=== PATIENT | female | born 1970 | race Caucasian/White ===

== ENCOUNTER 2021-03-29 12:27 | Outpatient (CLI) | payer OTHER, SELFPAY ==
--- NOTE | 2021-03-29 12:56 | ECHO_ITS ---
Patient Info Name: Fabby Davis Age: 50 years : 1970 Gender: Female Ht: 69 in Wt: 222 lbs BSA: 2.25 m2 HR: 74 bpm BP: 115 / 75 mmHg Heart Rhythm: Sinus Rhythm Exam Date: 03/29/2021 1:10 PM Exam Location: [facility] Patient Status: Outpatient Admit Date: 03/29/2021 Staff Ordering Physician: Joanne Holden MD [place] Specialist: Elizabeth Leone RDCS Attending Provider: Joanne Holden MD Exam Type: CA echo doppler color flow Study Info Indications R01.1 - Cardiac murmur, unspecified Complete two-dimensional, color flow and Doppler transthoracic echocardiogram is performed. Summary 1. Complete two-dimensional, color flow and Doppler transthoracic echocardiogram is performed. 2. Left ventricular chamber dimension is normal. 3. Left ventricular systolic function is normal, estimated at 60-65%. 4. The left ventricular diastolic function is grade I diastolic dysfunction. 5. E/e' 18 is elevated. 6. There is moderate aortic valve sclerosis. 7. There is mild to moderate aortic valve regurgitation. 8. There is mild tricuspid valve regurgitation. 9. No pulmonary hypertension, estimated pulmonary arterial systolic pressure is 27 mmHg. Left Ventricle E/e' 18 is elevated. Left ventricular chamber dimension is normal. Left ventricular systolic function is normal, estimated at 60-65%. The left ventricular diastolic function is grade I diastolic dysfunction. Right Ventricle Right ventricular systolic function is normal and with normal TAPSE 2.4 cm. Right ventricular chamber dimension is normal. Left Atria Left atrial chamber dimension is normal. Right Atria Right atrial chamber dimension is normal. Aortic Valve The aortic valve is trileaflet. There is moderate aortic valve sclerosis. There is no aortic valve stenosis. There is mild to moderate aortic valve regurgitation. Pulmonic Valve There is no pulmonic regurgitation. Mitral Valve There is no mitral valve stenosis. There is no mitral valve regurgitation. Tricuspid Valve There is mild tricuspid valve regurgitation. No pulmonary hypertension, estimated pulmonary arterial systolic pressure is 27 mmHg. Pericardium/Pleural There is no pericardial effusion. Inferior Vena Cava Normal inferior vena cava with >50% collapse upon inspiration consistent with normal right atrial pressure, 5 mmHg. Aorta The aortic root size at the sinus of Valsalva is normal. Left Ventricular Outflow Tract Name Value Normal LVOT 2D LVOT Diameter 1.9 cm LVOT Doppler LVOT Peak Gradient 6 mmHg LVOT Mean Gradient 3 mmHg LVOT VTI 26 cm LVOT VTI/AV VTI Ratio 0.6 LVOT Stroke Volume 75 ml LVOT CO 4.7 l/min LVOT CI 2.1 l/min/m2 Pulmonic Valve Name Value Normal
== END 2021-03-29 12:28 | disposition home or self-care (01) ==
PROVIDERS: PCP Family Medicine; Visit Provider Family Medicine
DX: R01.1 Cardiac murmur, unspecified (principal); I08.3 Combined rheumatic disorders of mitral, aortic and tricuspid valves
CPT/HCPCS: 93306

== ENCOUNTER 2022-03-06 08:44 | Outpatient (CLI) | payer OTHER, SELFPAY ==
--- NOTE | ~2022-03-06 | DEXA_ITS ---
Bone Density Report Name: TIFFANIE CUEVAS Age: 51 Sex: Female Ethnicity: White Date of : 1970 Indication: postmenopausal; screening for osteoporosis; prior fracture; cancer; hysterectomy; Referring Provider: KEATON LOCKETT Study: Bone densitometry was performed. Exam Date: March 06, 2022 Accession number: [id number] Bone Density: Region BMD T-score Z-score Classification AP Spine(L1-L4) 0.820 -2.1 -1.3 Osteopenia Femoral Neck (Left) 0.759 -0.8 0.0 Normal Total Hip (Left) 0.824 -1.0 -0.5 Normal Femoral Neck (Right) 0.668 -1.6 -0.9 Osteopenia Total Hip (Right) 0.758 -1.5 -1.0 Osteopenia Total Hip Mean 0.791 -1.3 -0.8 Osteopenia World Health Organization criteria for BMD impression classify patients as: Normal (T-score at or above -1.0), Osteopenia (T-score between -1.0 and -2.5), or Osteoporosis (T-score at or below -2.5). 10-year Fracture Risk(1): Major Osteoporotic Fracture 8.9% Hip Fracture 0.9% Reported Risk Factors: [place] (), Neck BMD=0.668, BMI=30.4, previous fracture (1) FRAX(R) Version 3.08. Fracture probability calculated for an untreated patient. Fracture probability may be lower if the patient has received treatment. Clinical Information Provided by Patient: Has had a low trauma fracture Has the following medical conditions: Cancer, Hysterectomy Patient maximum height was 71 Menopause Age: 33 No regular weight bearing exercise Drinks caffeinated beverages Onset of menses at age 15 Number of children 0 Impression: The patient has low bone mass, based on the Total Spine T-score. The patient has an estimated ten-year risk of hip fracture of 0.9% and an estimated ten-year risk of major fracture of 8.9%, based on the WHO FRAX algorithm. The patient has risk factors, including: previous fracture. Discussion: BONE DENSITY IS LOW AT ONE OR MORE SKELETAL SITES. This patient's lowest T-score is low at one or more skeletal sites. It meets the World Health Organization's (WHO) criteria for ?low bone mass? (T-score between -1.0 and -2.5). The patient's 10-year risk of fracture as calculated by FRAX is less than the threshold where pharmacological therapy is recommended by the National Osteoporosis Foundation (NOF). However, all treatment decisions require clinical judgment and consideration of individual patient factors, including patient preferences, comorbidities, previous drug use, risk factors not captured in the FRAX model (e.g., frailty, falls, vitamin D deficiency, increased bone turnover, interval significant decline in bone density) and possible under or overestimation of fracture risk by FRAX. The patient should follow a healthful lifestyle (good nutrition with adequate calcium and vitamin D, and appropriate weight-bearing exercise). Follow-Up: Consid
== END 2022-03-06 08:45 | disposition home or self-care (01) ==
LOC: ANHIMG 08:47
PROVIDERS: PCP Family Medicine; Visit Provider Obstetrics & Gynecology
DX: Z78.0 Asymptomatic menopausal state (principal); M85.88 Other specified disorders of bone density and structure, other site; M85.851 Other specified disorders of bone density and structure, right thigh
CPT/HCPCS: 77080

== ENCOUNTER 2022-05-16 12:54 | Day surgery (SDC) | payer OTHER, SELFPAY ==
[2022-03-08 11:18] VITALS: BMI 30.8
[2022-05-06 10:33] VITALS: BMI 30.6
--- NOTE | 2022-05-15 06:29 | PM.HPGS ---
History of Present Illness History of Present Illness Consent: Risks, benefits, and alternatives have been discussed and questions answered. Patient agrees to proceed with procedure. Chief complaint: Neoplasm Screening Narrative: Fabby Davis is a 51 year old female referred for colon cancer screening. Had performed her last colonoscopy 11 years ago at which time we found internal hemorrhoids. Review of Systems Review of Systems: All systems reviewed & are unremarkable except as noted in HPI and below PMFSH Past Medical History Medical History Allergic rhinitis Anxiety Breast cancer Depression Dyslipidemia Environmental allergies GERD without esophagitis Heart murmur History of right breast cancer Hx of Hodgkins lymphoma 1988 Hypothyroidism (acquired) Insomnia Intractable migraine without aura and without status migrainosus Osteopenia Pneumonia 12/2001 Reactive depression 01/2001 Restrictive lung disease Surgical History Surgical History History of back surgery (~2009) History of breast surgery (2003) History of lung surgery (~1989) History of total hysterectomy (~1999) Hx of lumbosacral spine surgery Social History Social History Smoking status: Never smoker Second hand tobacco smoke exposure: No Alcohol intake: current Substance use: never Substance use type: does not use Living arrangements: with family Spiritual care concerns: No Meds Home Medications and Allergies Home Medications Medication Instructions Recorded Confirmed Type bupropion HCl 150 mg 24 hr tablet, 150 mg PO QAM 02/07/21 05/06/22 History extended release cetirizine 10 mg tablet (Zyrtec) 10 mg PO DAILY 02/07/21 05/06/22 History esomeprazole magnesium 20 mg 40 mg PO DAILY 02/07/21 05/06/22 History capsule,delayed release (Nexium) sertraline 100 mg tablet 100 mg PO DAILY 02/07/21 05/06/22 History clobetasol 0.05 % topical cream 1 applic topical DAILY PRN vaginal 01/21/22 05/06/22 Rx irritation #30 grams mupirocin 2 % topical ointment 1 applic topical DAILY 02/13/22 05/06/22 History trazodone 100 mg tablet 200 mg PO QHS 02/13/22 05/06/22 History cyanocobalamin (vitamin B-12) 1,000 mcg sublingual DAILY #90 tabs 02/14/22 05/06/22 Rx 1,000 mcg sublingual tablet triamcinolone acetonide 0.5 % 1 applic topical BID PRN mild 02/18/22 05/06/22 Rx topical cream irritation #30 grams atorvastatin 40 mg tablet 40 mg PO QHS #90 tabs 04/02/22 05/06/22 Rx topiramate 50 mg tablet 50 mg PO DAILY #90 tabs 04/02/22 05/06/22 Rx zolpidem 12.5 mg tablet,extended 12.5 mg PO QHS PRN insomnia #90 04/05/22 05/06/22 Rx release,multiphase (Ambien CR) tabs eletriptan 40 mg tablet (Relpax) See Rx Instructions PO .COMPLEX 05/06/22 05/06/22 History levothyroxine 175 mcg tablet 175 mcg PO QAM #90 tabs 05/11/22 Rx Allergies Allergy/AdvReac Type Severity Reaction Status Date / Time levofloxacin Allergy Intermediate Rash Verified 05/16/22 13:09 Quinolones Allergy Mild Rash Verified 05/16/22 13:09 morphine AdvReac Intermediate Nausea Verified 05/16/22 13:09 Exam Const: General: alert Orientation/consciousness: patient oriented x3 Resp: Auscultation: clear to auscultation bilaterally Cardio: Rhythm: regular rhythm GI: GI Palp: Yes Soft to palpation and No Tenderness to palpation present (GI) Neuro: General: patient oriented x3 Assessment and Plan Assessment and plan (1) Colon cancer screening: Code(s): Z12.11 - Encounter for screening for malignant neoplasm of colon Status: Acute Assessment and Plan: Colonoscopy with possible biopsy or polypectomy or cautery or injection of substances.
[2022-05-16 13:15] VITALS: BP 121/83; PULSE 90; RESP 16; TEMP 36.6; O2SAT 99; BMI 29.7
--- NOTE | 2022-05-16 13:18 | WPDANESEPPF ---
Anes - Initial Pre Proc Eval Procedure: Operation Date: 05/16/22 14:30 Proposed Procedures p Screening Colonoscopy - William Gomez MD Date/Time: 05/16/22 13:18 Surgeon: William Gomez MD Pre Op Diagnosis: Neoplasm Screening Patient Data Age: 51 Gender: F Height: 1.8 m Weight: 96.9 kg Last Vital Signs Temp 36.6 C 05/16/22 13:15 Pulse 90 05/16/22 13:15 Resp 16 05/16/22 13:15 BP 121/83 05/16/22 13:15 Pulse Ox 99 05/16/22 13:15 O2 Del Method Room Air 05/16/22 13:15 Allergies Allergy/AdvReac Type Severity Reaction Status Date / Time levofloxacin Allergy Intermediate Rash Verified 05/16/22 13:09 Quinolones Allergy Mild Rash Verified 05/16/22 13:09 morphine AdvReac Intermediate Nausea Verified 05/16/22 13:09 Home Medications Medication Instructions Recorded Confirmed Type bupropion HCl 150 mg 24 hr tablet, 150 mg PO QAM 02/07/21 05/16/22 History extended release cetirizine 10 mg tablet (Zyrtec) 10 mg PO DAILY 02/07/21 05/06/22 History esomeprazole magnesium 20 mg 40 mg PO DAILY 02/07/21 05/16/22 History capsule,delayed release (Nexium) sertraline 100 mg tablet 100 mg PO DAILY 02/07/21 05/16/22 History clobetasol 0.05 % topical cream 1 applic topical DAILY PRN vaginal 01/21/22 05/06/22 Rx irritation #30 grams mupirocin 2 % topical ointment 1 applic topical DAILY 02/13/22 05/06/22 History trazodone 100 mg tablet 200 mg PO QHS 02/13/22 05/06/22 History cyanocobalamin (vitamin B-12) 1,000 mcg sublingual DAILY #90 tabs 02/14/22 05/16/22 Rx 1,000 mcg sublingual tablet triamcinolone acetonide 0.5 % 1 applic topical BID PRN mild 02/18/22 05/06/22 Rx topical cream irritation #30 grams atorvastatin 40 mg tablet 40 mg PO QHS #90 tabs 08/23/22 09/26/22 Rx topiramate 50 mg tablet 50 mg PO DAILY #90 tabs 04/02/22 05/16/22 Rx zolpidem 12.5 mg tablet,extended 12.5 mg PO QHS PRN insomnia #90 04/05/22 05/06/22 Rx release,multiphase (Ambien CR) tabs eletriptan 40 mg tablet (Relpax) See Rx Instructions PO .COMPLEX 05/06/22 05/06/22 History levothyroxine 175 mcg tablet 175 mcg PO QAM #90 tabs 05/11/22 05/16/22 Rx Patient hx anesthesia problems: post op nausea/vomiting Family hx anesthesia problems: none Results Review: All pre-operative results and documents have been reviewed as part of the pre-operative evaluation. FORMERLY [facility], [facility] Past Medical History Medical History Allergic rhinitis Anxiety Breast cancer Depression Dyslipidemia Environmental allergies GERD without esophagitis Heart murmur History of right breast cancer Hx of Hodgkins lymphoma 1988 Hypothyroidism (acquired) Insomnia Intractable migraine without aura and without status migrainosus Osteopenia Pneumonia 12/2001 Reactive depression 01/2001 Restrictive lung disease Surgical History Surgical History History of back surgery (~2009) History of breast surgery (2003) History of lung surgery (~1989) History of total hysterectomy (~1999) Hx of lumbosacral spine surgery Social History Social History Smoking status: Never smoker Second hand tobacco smoke exposure: No Alcohol intake: current Substance use: never Substance use type: does not use Living arrangements: with family Spiritual care concerns: No Anes - Eval Final PreProcedure Day of Procedure 05/16/22 13:18 Patient weight: overweight Heart: regular rate and rhythm Lungs: decreased breath sounds Airway: Mallampati scale class II Neurological: alert and oriented Last oral intake: >/= 8 hours ASA classification: III Emergent: no Anesthetic plan: proceed Anesthesia type and monitoring: general GIVS and standard monitoring Results Review: All pre-operative results and documents have been reviewed as part of the pre-operative evaluation. Informed Consent: T
[2022-05-16] MEDS: LACTATED RINGERS 1,000 ML 150 ML IV CONT (13:27)
[2022-05-16 14:06] VITALS: BP 133/68; PULSE 80; RESP 20; O2SAT 100
--- NOTE | 2022-05-16 14:24 | WPDANESPN ---
Anes - Prog Note Post-Op Date/Time: 05/16/22 14:24 Cardiovascular status: normal Respiratory status: normal Airway patency: baseline Mental status: baseline Post-Op hydration status: normal Vital Signs: Last Vital Signs Temp 36.6 C 05/16/22 13:15 Pulse 80 05/16/22 14:06 Resp 20 05/16/22 14:06 BP 133/68 05/16/22 14:06 Pulse Ox 100 05/16/22 14:06 O2 Del Method Room Air 05/16/22 14:06 Pain Score (VAS): 0 I/O: Intake & Output 05/15/22 05/16/22 05/16/22 23:59 07:59 15:59 Intake Total 400 Balance 400 Patient Feedback: Patient satisfied with anesthetic care.
[2022-05-16 14:26] VITALS: BP 111/60; PULSE 78; RESP 18; O2SAT 99
== END 2022-05-16 14:35 | disposition home or self-care (01) ==
PROVIDERS: PCP Family Medicine; Visit Provider Internal Medicine Gastroenterology
PROC: 0DJD8ZZ Inspection of Lower Intestinal Tract, Via Natural or Artificial Opening Endoscopic (ICD-10-PCS; CPT 45378; principal; 2022-05-16 14:30)
DX: Z12.11 Encounter for screening for malignant neoplasm of colon (principal)
CPT/HCPCS: 45380

== ENCOUNTER 2022-05-16 13:00 | Outpatient (NON) | payer OTHER, SELFPAY | END 2022-05-16 13:01 | disposition home or self-care (01) | LOC: ANHLAB 05-17 08:10 | PROVIDERS: PCP Family Medicine; Visit Provider Internal Medicine Gastroenterology | DX: D12.4 Benign neoplasm of descending colon (principal) | CPT/HCPCS: 88305 ==

== ENCOUNTER 2022-06-12 09:58 | Outpatient (CLI) | payer OTHER, SELFPAY ==
[2022-06-12 19:42] LABS: Vitamin D 25 Hydroxy 46.8 ng/mL
== END 2022-06-12 09:59 | disposition home or self-care (01) ==
LOC: ANHGOSHLAB 10:02
PROVIDERS: PCP Family Medicine; Visit Provider Obstetrics & Gynecology
DX: M81.0 Age-related osteoporosis without current pathological fracture (principal)
CPT/HCPCS: 36415; 82306

== ENCOUNTER 2022-09-16 12:38 | Outpatient (CLI) | payer OTHER, SELFPAY ==
[2022-09-16 21:17] LABS: Thyroid Stimulating Hormone Reflex 0.235 uIU/mL (0.465-4.68)
[2022-09-16 21:40] LABS: Alanine Aminotransferase 30 U/L (6-35); Albumin Level 4.4 g/dL (3.5-5.1); Alkaline Phosphatase 107 U/L (38-126); Anion Gap 7 mmol/L (8-16); Aspartate Amino Transferase 30 U/L (14-36); Bilirubin,Total 0.5 mg/dL (0.2-1.3); Blood Urea Nitrogen 13 mg/dL (7-17); Calcium 9.5 mg/dL (8.4-10.2); Carbon Dioxide 26 mmol/L (22-30); Chloride 107 mmol/L (98-107); Estimated Glomerular Filt Rate 52; Glucose 94 mg/dL (65-110); Potassium 4.3 mmol/L (3.4-5.0); Sodium 140 mmol/L (137-145)
[2022-09-17 02:49] LABS: Free T4 Free Thyroxine Reflex 1.71 ng/dL (0.78-2.19)
[2022-09-17 11:14] LABS: Total Triiodothyronine (T3) 1.43 NG/ML (0.97-1.69)
== END 2022-09-16 12:39 | disposition home or self-care (01) ==
LOC: ANHGOSHLAB 12:40
PROVIDERS: PCP Family Medicine; Visit Provider Family Medicine
DX: E78.5 Hyperlipidemia, unspecified (principal); E03.9 Hypothyroidism, unspecified
CPT/HCPCS: 36415; 80053; 84439; 84443; 84480

== ENCOUNTER 2023-03-16 11:38 | Outpatient (CLI) | payer OTHER, SELFPAY ==
--- NOTE | ~2023-03-16 | XR_ITS ---
Left Shoulder Technique: AP and scapular Y views were obtained. Clinical History: Pain Findings: No fracture or dislocation is seen. Osseous alignment is anatomic. The glenohumeral and acr omioclavicular joint spaces are preserved. Soft tissues are unremarkable. Impression: Unremarkable left shoulder radiographs. Reviewed, dictated and finalized at [facility]. Impression: Unremarkable left shoulder radiographs.
== END 2023-03-16 11:39 | disposition home or self-care (01) ==
PROVIDERS: PCP Family Medicine; Visit Provider Family Medicine
DX: M25.512 Pain in left shoulder (principal); G89.29 Other chronic pain
CPT/HCPCS: 73030

== ENCOUNTER 2023-04-21 11:00 | Outpatient (RCR) | payer OTHER, SELFPAY ==
--- NOTE | 2023-03-17 17:12 | OPREHPOC ---
Outpatient Therapy Plan of Care This is a Multidisciplinary Plan of Care that may contain components documented by all disciplines (PT, OT, and ST.) PT Problem 1 PT Problem #1 Knowledge Deficit PT Goal 1 Goal Pt to be IND with issued HEP Target Visit 4 PT Problem 2 PT Problem #2 Pain PT Goal 1 Goal Pt to report shoulder pain no greater than 3/10 in the last week Target Visit 4 PT Goal 2 Goal Pt to report 75% improvement in overall symptoms Target Visit 4 PT Problem 3 PT Problem #3 Impaired Strength PT Goal 1 Goal Pt to be able to lift 5lb overhead Target Visit 4 PT Goal 2 Goal Pt to be able to lift 30lb from ground level without an increase in pain. Target Visit 4 PT Problem 4 PT Problem #4 Impaired Functional Mobil PT Goal 1 Goal Pt to report no diffictulty sleeping d/t the shoulder. Target Visit 4
--- NOTE | 2023-03-17 17:12 | PTOPEVAL1 ---
Assessment and note entered by Yuridia Goodman, PT, DPT Evaluation Information Assessment Status Evaluation Diagnosis L shoulder pain Subjective Information Pt states 10 years ago she fell off a curb and landed with her arm above her head and this caused a fracture. At that time she did PT and was in a sling, this helped all of her pain. Pt states in the last 3-6 months her shoulder has started popping and clicking more and has more pain as well. Pt denies a current GEORGIE. She states her pain is very intermittent. She states she is limited in how much she can carry. She has a history of frequent shoulder and hip dislocations as a child. Reported Pain Level Pain Score 0: Self Report Assessment PT Clinical Summary Fabby presents to therapy today for her initial evaluation with a diagnosis of L shoulder pain. Today she demonstrate active ROM and resisted strength that is WFL and equal to her R shoulder. She demonstrates significantly forward and rounded shoulders as well as a severe forward head. Poor positioning and mechanics is likely contributing to her shoulder pain. Pt will benefit from skilled physical therapy to address posture, body mechanics, scapular strength, and to return to PLOF without limitations. Plan of Care Interventions Electrical Stimulation,Hot Pack/Cold Pack,Manual Therapy,Neuro Re-education,Patient/Caregiver Educati,Therapeutic Activities,Therapeutic Exercise PT Services Indicated Yes Treatment Frequency and 1x/wk for 4 visits. Duration These treatments will address the objective and functional deficits as defined above. The patient will be advanced safely and appropriately in order for the patient to progress towards his/her prior level of function. Additional exercises will be introduced and as well as a comprehensive home exercise program upon discharge, if needed, ?to ensure carryover of functional gains achieved in the clinic. This treatment plan has been reviewed and agreement upon by the patient.
--- NOTE | 2023-03-31 09:12 | PCPTNOTE ---
Patient did not show up for scheduled appointment this date; Called patient reminded for next appointment Friday @9:30am.
--- NOTE | 2023-04-07 09:26 | PCPTNOTE ---
Pt cancelled this morning because she had to go into work.
--- NOTE | 2023-04-21 11:28 | PTOPDC ---
Assessment and note entered by Yuridia Goodman, PT, DPT Evaluation Information Assessment Status Discharge Diagnosis L shoulder pain Subjective Information Pt states overall she is doing good. She states every now and then she will get an ache but overall its better. She reports good compliance with her HEP. Pt reports 90% improvement in overall symptoms. Reported Pain Level Pain Score 0: Self Report Assessment PT Clinical Summary Fabby presents to therapy today for her progress report following 3 visits of skilled therapy to treat her diagnosis of L shoulder pain. Today she demonstrate active ROM and resisted strength that is WFL and equal to her R shoulder. She demonstrates improved shoulder strength duy and improved body awareness in sitting. She has met all of her therapy goals and no longer required skilled services, she will be discharged at this time. Plan of Care PT Services Indicated No
== END 2023-04-21 13:09 | disposition home or self-care (01) ==
LOC: ANHGOSHPT 11:00
PROVIDERS: PCP Family Medicine; Visit Provider Family Medicine
DX: M25.512 Pain in left shoulder (principal); G89.29 Other chronic pain
CPT/HCPCS: 97110; 97161; 97530; 99199

== ENCOUNTER 2023-08-14 15:31 | Outpatient (CLI) | payer BC, SELFPAY ==
--- NOTE | ~2023-08-14 | XR_ITS ---
XR chest 2V DATE: 08/14/2023 15:43 INDICATION: Tenderness for 2 weeks. History of right lower lobectomy. TECHNIQUE: PA and lateral views COMPARISON: 01/28/2011 2 view chest FINDINGS: There is postoperative change and right lung volume loss consistent with clinical history o f right lower lobectomy. This was present on 01/28/2011 as well. Surgical clips right breast and some right breast calcifications consistent with fat necrosis. No pulmonary infiltrate or consolidation, pleural effusion or pulmonary vascular congestion or pneumo thorax. Normal heart size. Aortic arch calcification. There is thoracolumbar dextroscoliosis. Diffuse osteopenia. IMPRESSION: Status post right lower lobectomy; no active cardiopulmonary disease Postoperative change of right breast including surgical clips and some calcified fat necrosis Reviewed, dictated and finalized at location L. EAR FUEL ENRICHMENT TECHNICIAN IMPRESSION: Status post right lower lobectomy; no active cardiopulmonary diseas e Postoperative change of right breast including surgical clips and some calcifie d fat necrosis
[2023-08-14 16:34] LABS: Influenza A QL RT-PCR Negative (Negative); Influenza B QL RT-PCR Negative (Negative); RSV RNA, RT-PCR Negative (Negative); SARS-CoV-2 RNA PCR Positive (Negative)
== END 2023-08-14 15:32 | disposition home or self-care (01) ==
LOC: ANHIMG 15:34
PROVIDERS: PCP Family Medicine; Visit Provider Family Medicine
DX: J06.9 Acute upper respiratory infection, unspecified (principal); N64.1 Fat necrosis of breast; Z90.2 Acquired absence of lung [part of]; Z20.822 Contact with and (suspected) exposure to COVID-19
CPT/HCPCS: 71046; 87637

== ENCOUNTER 2023-09-08 08:35 | Outpatient (CLI) | payer BC, SELFPAY ==
--- NOTE | ~2023-09-08 | XR_ITS ---
EXAMINATION: XR barium swallow modified DATE: 09/08/2023 09:26 INDICATION: Dysphagia, unspecified. TECHNIQUE: The patient was given barium-containing material of multiple consistencies to swallow by t weston speech pathologist while I performed fluoroscopy. Fluoroscopy exposure time was 1.0 minutes. The n umber of fluoroscopy images saved to the PACS was 1. Dose-area product was 0.629 Gy-cm^2. FINDINGS: The oral stage, pharyngeal stage, and cervical/esophageal stage of the swallow are normal. IMPRESSION: 1. Normal modified barium swallow. 2. Please refer to the speech therapy report for recommendations. Reviewed, dictated and finalized at location A. HING PATTERN PREPARER
--- NOTE | 2023-09-08 09:51 | REHSTMBS ---
Assessment and note entered by Sherri Cárdenas, OILER HELPER Modified Barium Swallow Evaluation Feeding Type Recommended Oral Food Consistency Soft and Bite Size, Level Liquid Consistency Thin (0) ST Clinical Summary MODIFIED BARIUM SWALLOW STUDY (MBS) This patient was seen for a Modified Barium Swallow study at the request of her physician, Dr. Kaminski. Patient reports a history of Hodgkins Lymphoma with radiation throughout the chest area when she was 18 years old, and then breast cancer when she was 33 years old. Patient stated that for about the past year, she began feeling as if something were in her throat when swallowing with pain on the left side, and she has started to avoid foods that are crunchy or that could scratch the throat, such as the breading on chicken nuggets. Patient also reports a history of gastroesophageal reflux and a hyper sensitive gag reflex. Patient saw Dr. Kaminski in July who she said suggested Nexium but she stated that made no difference so he recommended the MBS study. Patient was viewed in the lateral position to the level of C5/C6, but she also was presented with thin liquid in the A-P view to assess symmetry of the pharynx. On each presentation of thin liquid contrast medium, pudding mixed with semi-solid contrast medium, and fruit pieces and stevie cracker piece, both coated with the semi-solid mixture. Patient elicited quick swallows with no evidence of penetration/aspiration throughout this assessment. There was no significant pharyngeal residue noted throughout, and patient did not report a feeling that anything was in her throat at the completion of this assessment. Results indicate this patient's swallowing skills are within normal limits. She is referred back to her physician for further assessment of her complaints. Therapist encouraged patient continue to follow GERD guidelines to prevent a feeling of fullness throughout the upper digestive tract, including small bites and sips, avoid [id number] foods, remain upright after eating and drinking. She voiced understanding. Thank you for this referral.
== END 2023-09-08 08:36 | disposition home or self-care (01) ==
PROVIDERS: PCP Family Medicine; Visit Provider Otolaryngology
DX: R13.10 Dysphagia, unspecified (principal)
CPT/HCPCS: 92611

== ENCOUNTER 2023-10-04 08:57 | Outpatient (CLI) | payer BC, SELFPAY ==
--- NOTE | ~2023-10-04 | CT_ITS ---
CT scan of the Neck Technique: 2.5 mm axial scans were obtained through the neck after intravenous administration of 75 c c Omnipaque 350. Coronal and sagittal reconstructions of the neck were obtained. Dose reduction techn ique was used on this scan by utilizing automated exposure control and iterative reconstruction techn ique. The dose-length product (DLP) was 411.54 mGy-cm. Clinical History: Dysphagia, left neck swelling, history of Hodgkin's lymphoma Findings: There is no evidence of any significant cervical lymphadenopathy. Several small, nonenlarged jugulo- digastric and posterior cervical lymph nodes are noted bilaterally. Parapharyngeal spaces appear norm al bilaterally. The parotid and submandibular glands appear normal. The pharyngeal mucosal spaces appear normal. No soft tissue masses are seen in the neck. Probable low to moderate grade stenoses at the bilateral proximal internal carotid arteries with calcified plaque s present. The thyroid gland appears normal. Images of the lung apices reveal mild biapical chronic scarring or possibly postradiation change. Impression: No abnormal mass lesion identified. Probable low to moderate grade stenoses of the bilateral proximal internal carotid arteries with calc ified plaques present. Reviewed, dictated and finalized at location . THCARE SPECIALIST Impression: No abnormal mass lesion identified. Probable low to moderate grade stenoses of the bilateral proximal internal [place] arteries with calcified plaques present.
== END 2023-10-04 08:58 | disposition home or self-care (01) ==
LOC: ANHIMG 08:58
PROVIDERS: PCP Family Medicine; Visit Provider Nurse Practitioner
DX: R13.10 Dysphagia, unspecified (principal); R13.12 Dysphagia, oropharyngeal phase; R22.1 Localized swelling, mass and lump, neck
CPT/HCPCS: 70491; Q9967

== ENCOUNTER 2023-10-08 13:06 | Outpatient (CLI) | payer BC, SELFPAY ==
--- NOTE | ~2023-10-08 | US_ITS ---
EXAMINATION: US carotid duplex BI DATE: 10/08/2023 13:34 INDICATION: Carotid artery atherosclerosis and stenosis TECHNIQUE: Grayscale, color Doppler, and pulsed Doppler images of the cervical carotid arteries were obtained. The degree of vessel stenosis is placed in one of the following categories: normal, <50%, 5 0-69%, >=70% but less than near-occlusion, near-occlusion, or total occlusion. Note that percent sten osis relative to normal distal artery lumen diameter is indirectly measured from velocity measurement s as described by Dmitriy, et al. Radiology 2003; 229:340-346. COMPARISON: None. FINDINGS: RIGHT: The right common carotid artery (CCA) peak systolic velocity (PSV) is 94 cm/s. The right internal car otid artery (ICA) PSV is 92 cm/s. The right ICA end-diastolic velocity (EDV) is 26 cm/s. The right IC A/CCA PSV ratio is 1.0. Grayscale and color Doppler images yield an estimate of <50% diameter reducti on from plaque in the ICA. The external carotid artery (ECA) PSV is 89 cm/s. There is antegrade flow in the right vertebral artery. LEFT: The left CCA PSV is 100 cm/s. The left ICA PSV is 108 cm/s. The left ICA EDV is 17 cm/s. The left ICA /CCA PSV ratio is 1.1. Grayscale and color Doppler images yield an estimate of <50% diameter reductio n from plaque in the ICA. The ECA PSV is 98 cm/s. There is antegrade flow in the left vertebral arter y. IMPRESSION: 1. <50% stenosis in the right internal carotid artery. 2. <50% stenosis in the left internal carotid artery. Reviewed, dictated and finalized at location B. T SERVICES DIRECTOR
== END 2023-10-08 13:07 | disposition home or self-care (01) ==
LOC: ANHIMG 13:07
PROVIDERS: PCP Family Medicine; Visit Provider Family Medicine
DX: I65.23 Occlusion and stenosis of bilateral carotid arteries (principal)
CPT/HCPCS: 93880

== ENCOUNTER 2023-10-30 00:52 | Day surgery (SDC) | payer BC, SELFPAY ==
[2023-10-22 13:43] VITALS: BMI 25.5
--- NOTE | 2023-10-28 09:41 | SUR.PREOP ---
Patient called regarding upcoming procedure. Voicemail left regarding appointment times.
[2023-10-30] MEDS: LACTATED RINGERS 1,000 ML 150 ML IV CONT (11:54)
[2023-10-30 11:55] VITALS: BP 97/63; PULSE 95; RESP 16; TEMP 36.2; O2SAT 99
--- NOTE | 2023-10-30 11:58 | WPDANESEPPF ---
Anes - Initial Pre Proc Eval Procedure: Operation Date: 10/30/23 13:00 Proposed Procedures p Esophagogastroduodenoscopy - Duong Murray MD Date/Time: 10/30/23 11:58 Surgeon: Duong Murray MD Pre Op Diagnosis: dysphagia,GERD Patient Data Age: 53 Gender: F Height: 1.8 m Weight: 83.6 kg Last Vital Signs Temp 97.2 F L 10/30/23 11:55 Pulse 95 10/30/23 11:55 Resp 16 10/30/23 11:55 BP 97/63 L 10/30/23 11:55 Pulse Ox 99 10/30/23 11:55 O2 Del Method Room Air 10/30/23 11:55 Allergies Allergy/AdvReac Type Severity Reaction Status Date / Time morphine AdvReac Intermediate Nausea and Verified 10/30/23 11:47 Vomiting Home Medications Medication Instructions Recorded Confirmed Type bupropion HCl 150 mg 24 hr tablet, 150 mg PO QAM 02/07/21 10/30/23 History extended release trazodone 100 mg tablet 200 mg PO QHS 02/13/22 10/22/23 History esomeprazole magnesium 40 mg 40 mg PO DAILY #90 caps 09/02/22 10/30/23 Rx capsule,delayed release (Nexium) clobetasol 0.05 % topical cream 1 applic topical BID PRN vaginal 02/03/23 10/22/23 Rx irritation 10 days #60 grams sertraline 100 mg tablet 200 mg PO DAILY 03/10/23 10/30/23 History topiramate 50 mg tablet 50 mg PO DAILY #90 tabs 04/28/23 10/30/23 Rx triamcinolone acetonide 0.5 % 1 applic topical BID PRN mild 07/29/23 10/22/23 Rx topical cream irritation #30 grams zolpidem 12.5 mg tablet,extended 12.5 mg PO QHS PRN insomnia #90 08/26/23 10/22/23 Rx release,multiphase (Ambien CR) tabs atorvastatin 40 mg tablet 40 mg PO QHS #90 tabs 10/03/23 10/30/23 Rx levothyroxine 175 mcg tablet 175 mcg PO QAM #90 tabs 10/21/23 10/30/23 Rx eletriptan 40 mg tablet (Relpax) See Rx Instructions PO .COMPLEX 10/22/23 10/22/23 History PRN MIGRAINES Patient hx anesthesia problems: none Family hx anesthesia problems: none Results Review: All pre-operative results and documents have been reviewed as part of the pre-operative evaluation. [facility] Past Medical History Medical History (Updated 09/29/23 @ 15:39 by Afua Estes, PROTOCOL MANAGER) Allergic rhinitis Anxiety Breast cancer Chronic left shoulder pain Depression Dyslipidemia Environmental allergies GERD without esophagitis Heart murmur History of right breast cancer Hx of adenomatous colonic polyps Hx of head and neck radiation Hx of Hodgkins lymphoma 1988 Hypothyroidism (acquired) Insomnia Intractable migraine without aura and without status migrainosus Odynophagia Oropharyngeal dysphagia Osteopenia Palpable mass of neck Pneumonia 12/2001 Reactive depression 01/2001 Restrictive lung disease Vitamin B12 deficiency Weight loss Surgical History Surgical History History of back surgery (~2009) History of breast surgery (2003) History of lung surgery (~1989) History of total hysterectomy (~1999) Hx of lumbosacral spine surgery Social History Social History Smoking status: Never smoker Second hand tobacco smoke exposure: No Alcohol intake: current Substance use: never Substance use type: does not use Lack of Transportation: No Lack of Food: Never True Current Housing: I Have Housing Concerned About Future Housing: No Difficulty Paying Gas/Electric Bills: No Difficulty Paying for Meds: No Currently Unemployed: No Education: Bachelor's Degree Difficulty w/ Childcare or Family Care: No Living arrangements: with family Occupation/Education: occupation Gender identity (if verbalized by the patient): Female Spiritual care concerns: No Agree to blood products: Yes Anes - Eval Final PreProcedure Day of Procedure 10/30/23 11:58 Patient weight: normal Heart: regular rate and rhythm Lungs: clear to auscultation Airway: Mallampati scale class II Neurological: alert and oriented Last oral intake: >/= 8 hours ASA clas
--- NOTE | 2023-10-30 12:04 | PM.HPGS ---
History of Present Illness History of Present Illness Consent: Risks, benefits, and alternatives have been discussed and questions answered. Patient agrees to proceed with procedure. Chief complaint: dysphagia,GERD Narrative: Fabby Davis is a 53 year old female here to get her first EGD. She has a history of Hodgkin's lymphoma on the right side of her neck status post surgery, 8 months of chemotherapy and 3 months of daily radiation at the age of 19. She has globus sensation for 1 year, she is seeing ENT. Review of Systems Review of Systems: All systems reviewed & are unremarkable except as noted in HPI and below PMFSH Past Medical History Medical History (Updated 09/29/23 @ 15:39 by Afua Estes, LIVERY CAR DRIVER) Allergic rhinitis Anxiety Breast cancer Chronic left shoulder pain Depression Dyslipidemia Environmental allergies GERD without esophagitis Heart murmur History of right breast cancer Hx of adenomatous colonic polyps Hx of head and neck radiation Hx of Hodgkins lymphoma 1988 Hypothyroidism (acquired) Insomnia Intractable migraine without aura and without status migrainosus Odynophagia Oropharyngeal dysphagia Osteopenia Palpable mass of neck Pneumonia 12/2001 Reactive depression 01/2001 Restrictive lung disease Vitamin B12 deficiency Weight loss Surgical History Surgical History History of back surgery (~2009) History of breast surgery (2003) History of lung surgery (~1989) History of total hysterectomy (~1999) Hx of lumbosacral spine surgery Social History Social History Smoking status: Never smoker Second hand tobacco smoke exposure: No Alcohol intake: current Substance use: never Substance use type: does not use Lack of Transportation: No Lack of Food: Never True Current Housing: I Have Housing Concerned About Future Housing: No Difficulty Paying Gas/Electric Bills: No Difficulty Paying for Meds: No Currently Unemployed: No Education: Bachelor's Degree Difficulty w/ Childcare or Family Care: No Living arrangements: with family Occupation/Education: occupation Gender identity (if verbalized by the patient): Female Spiritual care concerns: No Agree to blood products: Yes Meds Home Medications and Allergies Home Medications Medication Instructions Recorded Confirmed Type bupropion HCl 150 mg 24 hr tablet, 150 mg PO QAM 02/07/21 10/30/23 History extended release trazodone 100 mg tablet 200 mg PO QHS 02/13/22 10/22/23 History esomeprazole magnesium 40 mg 40 mg PO DAILY #90 caps 09/02/22 10/30/23 Rx capsule,delayed release (Nexium) clobetasol 0.05 % topical cream 1 applic topical BID PRN vaginal 02/03/23 10/22/23 Rx irritation 10 days #60 grams sertraline 100 mg tablet 200 mg PO DAILY 03/10/23 10/30/23 History topiramate 50 mg tablet 50 mg PO DAILY #90 tabs 04/28/23 10/30/23 Rx triamcinolone acetonide 0.5 % 1 applic topical BID PRN mild 07/29/23 10/22/23 Rx topical cream irritation #30 grams zolpidem 12.5 mg tablet,extended 12.5 mg PO QHS PRN insomnia #90 08/26/23 10/22/23 Rx release,multiphase (Ambien CR) tabs atorvastatin 40 mg tablet 40 mg PO QHS #90 tabs 10/03/23 10/30/23 Rx levothyroxine 175 mcg tablet 175 mcg PO QAM #90 tabs 10/21/23 10/30/23 Rx eletriptan 40 mg tablet (Relpax) See Rx Instructions PO .COMPLEX 10/22/23 10/22/23 History PRN MIGRAINES Allergies Allergy/AdvReac Type Severity Reaction Status Date / Time morphine AdvReac Intermediate Nausea and Verified 10/30/23 11:47 Vomiting Vital Signs Vital Signs - 24 hr 10/30/23 11:55 Temperature 97.2 F L Pulse Rate 95 Respiratory Rate 16 Blood Pressure 97/63 L Pulse Oximetry 99 Oxygen Delivery Room Air Exam Const: General: comfortable and no acute distress HENMT: Face/Nose/Sinus: Normal nares present Eyes: General: appearance normal, solange
[2023-10-30 12:24] VITALS: BP 95/57; PULSE 68; RESP 23; O2SAT 95
[2023-10-30 12:34] VITALS: BP 104/67; PULSE 70; RESP 16; O2SAT 98
[2023-10-30 12:44] VITALS: BP 101/63; PULSE 68; RESP 17; O2SAT 99
== END 2023-10-30 12:58 | disposition home or self-care (01) ==
PROVIDERS: PCP Family Medicine; Visit Provider Internal Medicine Gastroenterology
PROC: 0DJ08ZZ Inspection of Upper Intestinal Tract, Via Natural or Artificial Opening Endoscopic (ICD-10-PCS; CPT 43235; principal; 2023-10-30 13:00)
DX: K21.00 Gastro-esophageal reflux disease with esophagitis, without bleeding (principal); K29.50 Unspecified chronic gastritis without bleeding; F32.A Depression, unspecified; E78.5 Hyperlipidemia, unspecified; E03.9 Hypothyroidism, unspecified; E53.8 Deficiency of other specified B group vitamins; F41.9 Anxiety disorder, unspecified; G89.29 Other chronic pain; M25.512 Pain in left shoulder; R01.1 Cardiac murmur, unspecified; G47.00 Insomnia, unspecified; G43.009 Migraine without aura, not intractable, without status migrainosus; J98.4 Other disorders of lung; Z98.890 Other specified postprocedural states; Z98.1 Arthrodesis status; Z92.3 Personal history of irradiation; Z85.3 Personal history of malignant neoplasm of breast; Z86.010 Personal history of colon polyps; Z85.71 Personal history of Hodgkin lymphoma
CPT/HCPCS: 43239; 43248; 88305; 88342; J2704; J7120